=== PATIENT | female | born 1945 | race Caucasian/White ===

== ENCOUNTER 2017-08-24 18:34 | Observation (INO) | END 2017-08-25 19:50 | disposition home or self-care (01) ==

== ENCOUNTER 2017-08-29 17:53 | Inpatient (IN) | END 2017-09-04 18:38 | disposition home health service (06) | DRG 291 ==

== ENCOUNTER 2018-09-17 12:16 | Emergency (ER) | payer MEDICARE, OTHER ==
[~2018-09-17] VITALS: Ht 160 cm; Wt 66.8 kg
[~2018-09-17 12:16] MED LIST: AMIO200T4 PO; CARV3.1260 PO; CLOP75TA19 PO; FLUT1BLS INHALATION; FURO40TA4 PO; GABA-526 PO; HYDR-4011 PO; HYDR2TAB36 PO; LORA1TAB PO; LOSA25TA12 PO; RANI150T5 PO; SPIR25TA PO; THYR60TA PO
[2018-09-17 12:18] VITALS: Ht 160 cm; Wt 66.8 kg
--- NOTE | 2018-09-17 13:08 | ERD ---
ER Documentation Chief Complaint Chief Complaint SOB AND MILD CHEST DISCOMFORT SENT BY PMD. COUGH AND CONGESTION FOR 1 MO ROS All systems reviewed and are negative except as per history of present illness. Medications Home Meds Active Scripts Carvedilol* (Carvedilol*) 3.125 Mg Tablet, 3.125 MG PO BID for 30 Days, #60 TAB Prov:YVETTE RADFORD MD 12/17/17 Fluticasone/Vilanterol (Breo Ellipta 200-25 Mcg INH) 1 Each Blst.w.dev, 1 PUFF INHALATION DAILY for 30 Days, #1 INHALER Prov:YVETTE RADFORD MD 09/04/17 Thyroid* ([place] Thyroid*) 60 Mg Tablet, 60 MG PO DAILY for 30 Days, #30 TAB Prov:YVETTE RADFORD MD 09/04/17 Furosemide* (Furosemide*) 40 Mg Tablet, 40 MG PO DAILY for 30 Days, #30 TAB Prov:YVETTE RADFORD MD 09/04/17 Spironolactone* (Aldactone*) 25 Mg Tablet, 25 MG PO DAILY for 30 Days, #30 TAB Prov:YVETTE RADFORD MD 09/04/17 Reported Medications Losartan Potassium* (Losartan Potassium*) 25 Mg Tablet, 25 MG PO DAILY, TAB 12/15/17 Hydrocodone/Acetaminophen ([place] 5-325 Tablet) 1 Each Tablet, 1 EACH PO, TAB 12/15/17 Gabapentin* (Gabapentin*) 600 Mg Tablet, 600 MG PO TID, #90 TAB 12/15/17 Amiodarone Hcl* (Amiodarone Hcl*) 200 Mg Tablet, 200 MG PO DAILY, #30 TAB 12/15/17 Clopidogrel Bisulfate* (Clopidogrel Bisulfate*) 75 Mg Tablet, 75 MG PO DAILY, #30 TAB 08/24/17 Ranitidine Hcl* (Ranitidine Hcl*) 150 Mg Tablet, 150 MG PO Q12, #60 TAB 08/24/17 Hydromorphone Hcl* (Dilaudid*) 2 Mg Tablet, 2 MG PO BID, TAB 08/24/17 Lorazepam* (Lorazepam*) 1 Mg Tablet, 1 MG PO BID PRN for ANXIETY, #30 TAB 08/24/17 Allergies Allergies: Coded Allergies: Penicillins (Unverified Allergy, Unknown, 08/29/17) morphine (Unverified Allergy, Unknown, 08/29/17) PMhx/Soc History of Surgery: Yes Anesthesia Reaction: No Hx Neurological Disorder: No Hx Respiratory Disorders: Yes (PNA) Hx Cardiac Disorders: Yes (NE, CHF) Hx Psychiatric Problems: Yes (depression, anxiety) Hx Alcohol Use: No Hx Substance Use: Yes (meth) Hx Tobacco Use: Yes Physical Exam Vitals Vital Signs Date Temp Pulse Resp B/P (MAP) Pulse Ox O2 O2 Flow FiO2 Time Delivery Rate 09/17/18 99.8 90 22 149/63 90 12:18 (91) Physical Exam Const: No acute distress Head: Atraumatic Eyes: Normal Conjunctiva ENT: Normal External Ears, Nose and Mouth. Neck: Full range of motion. No meningismus. Resp: Clear to auscultation bilaterally Cardio: Regular rate and rhythm, no murmurs Abd: Soft, non tender, non distended. Normal bowel sounds Skin: No petechiae or rashes Back: No midline or flank tenderness Ext: No cyanosis, or edema Neur: Awake and alert Psych: Normal Mood and Affect TOSHIA REED MD Sep 17, 2018 13:08
[2018-09-17] MEDS ORDERED: IPRATROPIUM (NEB) 0.5 MG/2.5 ML AMP INH STA (13:16)
[2018-09-17] MEDS ORDERED: LEVALBUTEROL (NEB) 1.25 MG/0.5 ML AMP HHN ONE (13:30)
[2018-09-17] MEDS ORDERED: QUET50TA PO (13:33)
[2018-09-17] MEDS ORDERED: BUSP10TA2 PO (13:33)
[2018-09-17] MEDS ORDERED: FLUT1AER INHALATION (13:34)
[2018-09-17] MEDS ORDERED: GABA300C16 PO (13:34)
[2018-09-17] MEDS ORDERED: FLUO20CA22 PO (13:34)
[2018-09-17] MEDS ORDERED: LORA1TAB PO (13:35)
[2018-09-17] MEDS ORDERED: RANI150T5 PO (13:36)
[2018-09-17] MEDS ORDERED: METO-335 PO (13:36)
[2018-09-17] MEDS ORDERED: LOSA25TA12 PO (13:37)
[2018-09-17] MEDS ORDERED: FUROSEMIDE 40 MG INJ IV ONE (15:30)
[2018-09-17] MEDS ORDERED: ASPIRIN 81 MG TAB PO ONE (15:30)
[2018-09-17] MEDS ORDERED: FURO40TA4 PO (16:26)
--- NOTE | 2018-09-17 16:27 | PDOCDIS ---
Discharge Instructions CONDITION [id number] Patient Condition: [id number] Good HOME CARE INSTRUCTIONS: [id number] Diet Instructions: [id number] Low Fat /Cholesterol ACTIVITY: [id number] Activity Restrictions: [id number] No Restrictions FOLLOW UP/APPOINTMENTS Follow-up Plan pcp [address] Bates 1 week ALBERTO MANLEY MD Sep 17, 2018 16:26
[2018-09-17 17:29] VITALS: BP 120/83; PULSE 77; RESP 22
--- NOTE | 2018-09-17 18:21 | CONS ---
DATE OF ADMISSION: 09/17/2018 DATE OF CONSULTATION: CHIEF COMPLAINT: Dyspnea on exertion. HISTORY OF PRESENT ILLNESS: A 73-year-old female with a history of coronary artery disease and old M I, was referred to emergency room by her primary care provider for abnormal EKG. On review of system s, the patient denies any chest pain. She denies shortness of breath at rest, but she becomes dyspne ic with exertion. The patient has underlying COPD and congestive heart failure. She denies any naus ea, vomiting or diaphoresis. Initial evaluation revealed a troponin of less than 0.012. BNP was jeane vated at 1070. Chest x-ray was unremarkable. A 12-lead EKG showed old inferior and anterior infarct with no ST-T wave changes. PAST MEDICAL HISTORY: 1. Coronary artery disease. 2. Old [place]. 3. Hypertension. 4. Chronic congestive heart failure. 5. Anxiety disorder. 6. COPD. PAST SURGICAL HISTORY: Status post pacemaker placement. MEDICATIONS PRIOR TO ADMISSION: 1. Plavix 75 mg daily. 2. Amiodarone 200 mg daily. 3. Losartan 25 mg daily. 4. Toprol-XL 25 mg daily. 5. Buspirone 10 mg b.i.d. 6. Fluoxetine 20 mg daily. 7. Gabapentin 300 mg t.i.d. 8. Lorazepam 1 mg at bedtime as needed. 9. Seroquel 50 mg at bedtime. 10. Lasix 40 mg daily. 11. Ranitidine 150 mg b.i.d. 12. Breo inhaler. SOCIAL HISTORY: The patient admits to smoking a half pack of cigarettes per day. PHYSICAL EXAMINATION: GENERAL: A well-developed and well-nourished female, who is in no apparent distress. VITAL SIGNS: Stable. She is afebrile. Oxygen saturation on room air was 96%. HEENT: Extraocular muscles intact. Pupils equal and reactive to light bilaterally. Sclerae are ani cteric. Oropharynx is clear and moist. NECK: Supple, no JVD, no carotid bruits. LUNGS: Mild rhonchi. CARDIAC: Regular rate and rhythm. No murmurs, rubs or gallops. ABDOMEN: Soft, nontender, nondistended, normoactive bowel sounds. EXTREMITIES: No clubbing, cyanosis, or edema. NEUROLOGICAL: Nonfocal. ASSESSMENT: A 73-year-old female with dyspnea on exertion due to a combination of congestive heart f ailure and chronic obstructive pulmonary disease. 2. Chronic congestive heart failure with mild exacerbation. 3. Coronary artery disease. 4. History of old myocardial infarction. 5. Status post pacemaker placement. 6. Hypertension. 7. Hyperlipidemia. 8. Chronic obstructive pulmonary disease with continuous smoking. PLAN: Discharge home. Resume home medications, refill Lasix 40 mg p.o. daily. Follow up with PCP erasmo Mckeon in 1 week. Dictated By: ALBERTO ROE/NTS Conf#: [id number] DID#: [id number] CC: TOSHIA REED MD; ALBEROT MCKEON MD;*EndCC*
== END 2018-09-17 17:31 | disposition home or self-care (01) ==
LOC: E/R 12:16 → CANBEDREQ 20:51
DX: R06.02 Shortness of breath (principal); I50.9 Heart failure, unspecified; I25.2 Old myocardial infarction; R09.89 Other specified symptoms and signs involving the circulatory and respiratory systems; R07.89 Other chest pain; Z87.891 Personal history of nicotine dependence; Z79.01 Long term (current) use of anticoagulants
CPT/HCPCS: 36415; 71045; 80048; 83880; 84484; 85025; 85610; 85730; 93005; 94664; 96374; 99285; J1940